=== PATIENT | female | born 1965 | race Caucasian/White ===

== ENCOUNTER 2021-07-15 07:45 | Outpatient (CLI) | payer BC, SELFPAY ==
--- NOTE | 2021-07-15 08:00 | ECG_ITS ---
Measurements Intervals [place] Rate: 54 P: 37 [place]: 155 QRS: -39 QRSD: 88 T: -13 QT: 388 QTc: 368 Interpretive Statements SINUS BRADYCARDIA LEFT AXIS DEVIATION INCOMPLETE RIGHT BUNDLE BRANCH BLOCK LOW QRS VOLTAGE IN PRECORDIAL LEADS POOR R WAVE PROGRESSION, ANTERIOR LEADS BORDERLINE ST-T WAVE ABNORMALITY- ANTEROLAT/INF LEADS BASELINE ARTIFACT- I, II ,AVR BORDERLINE ECG Electronically Signed On 07-15-2021 8:07:25 FRONT OFFICE DIRECTOR by Theodore Shirley D.O.
== END 2021-07-15 07:46 | disposition home or self-care (01) ==
LOC: ANHSURGERY 07:53
PROVIDERS: PCP Family Medicine; Visit Provider Podiatrist Foot & Ankle Surgery
DX: Z01.810 Encounter for preprocedural cardiovascular examination (principal); I10 Essential (primary) hypertension
CPT/HCPCS: 93005

== ENCOUNTER 2021-07-18 02:21 | Day surgery (SDC) | payer BC, SELFPAY ==
[2021-07-11 14:47] VITALS: BMI 39.3
--- NOTE | 2021-07-11 15:01 | PC.NURSE ---
Addendum entered by Negra Roca RN 07/14/21 15:00: TAKE ATENOLOL WITH A SMALL SIP OF WATER THE MORNING OF SURGERY (DISREGARD NOTE ABOUT AMLODIPINE) Original Note: Report to the Outpatient Waiting Room, entrance under the green pavilion located off [facility], at time 9:00 on date 07/18/21. OR Time: 11:00. - You will be asked a series of questions to screen for COVID 19 for your protection. - A mask is required within the hospital. - No visitors are allowed at this time. Preoperative COVID Testing Requirements: No COVID Test needed if: (proof is required; if not received patient will have Rapid Test prior to entry) - Patient has received COVID Vaccine at least 14 days prior to procedure date or - Patient has positive COVID test result within last 90 days of surgery date. COVID Test needed if above criteria is not met Patients may have clear liquids (water, carbonated beverages, clear teas, apple juice) until 3 hours prior to surgery (8:00) with a maximum of 20 ounces. - No food from midnight until time of surgery Take the following medications with a SIP of water the morning of surgery: AMLODIPINE Medications to discontinue per physician: N/A Date to take last dose: N/A Please no make-up, nail pashto, hairspray, perfume, deodorant, or body powder the day of surgery. No jewelry (including any body piercings) or valuables the day of surgery, leave them at home. Please take a shower or bath the night before, or the morning of, surgery with an antibacterial soap. Wear comfortable, loose fitting clothing. - Jewelry must be removed prior to entering the operating room. Rings and piercings that are not removed may be cut off. - The hospital will not accept responsibility for valuables. - Please leave all valuables, including medications, at home the day of surgery. If you are going home after surgery, a licensed school bus driver/custodian must drive you home. - NO public transportation without another adult. - We recommend that an adult stay with you for 24 hours following discharge. - We also recommend that you do not drive, make important decision, drink alcoholic beverages, or take any drugs that were not prescribed by your health care provider for at least 24 hours after your discharge time. Follow any additional instructions given to you from your surgeon. Telephone instructions given to RITIKA FAY and asked if any additional questions and then verbalized understanding. Patient advised to call surgeon office or pre surgery nurse liaison [phone] if any additional questions.
--- NOTE | 2021-07-17 17:02 | WPDANESEPP ---
Anes - Eval Pre Procedure Procedure: Operation Date: 07/18/21 11:00 Proposed Procedures p Amandeep Shortening Second Metatarsal Osteotomy Right Foot, Primary Plantar Plate Repair Second Metatarsal Phalangeal Joint Right Foot, - Andres Wilson JR, MD s Hammer Toe Repair Second Digit Right Foot - Andres Wilson JR, MD Date/Time: 07/17/21 17:02 Pre Op Diagnosis: metarsalgia sub 2nd MPJ right foot Patient Data Age: 55 Gender: F Height: 1.57 m Weight: 97.52 kg Allergies Allergy/AdvReac Type Severity Reaction Status Date / Time Sulfa (Sulfonamide Allergy Hives Verified 07/11/21 14:44 Antibiotics) Home Medications Medication Instructions Recorded Confirmed Type atenolol 50 mg PO DAILY 07/11/21 07/11/21 History telmisartan 20 mg PO DAILY 07/11/21 07/11/21 History Patient hx anesthesia problems: none Family hx anesthesia problems: none Results Review: All pre-operative results and documents have been reviewed as part of the pre-operative evaluation. [facility] Past Medical History Medical History (Updated 07/17/21 @ 17:04 by Ernie Lou CRNA) Asthma Hypertension Migraines Morbid obesity Social History Social History Smoking status: Never smoker Alcohol intake: never Substance use: never Substance use type: does not use Spiritual care concerns: No Comments VR 54 SINUS BRADYCARDIA LEFT AXIS DEVIATION INCOMPLETE RIGHT BUNDLE BRANCH BLOCK LOW QRS VOLTAGE IN PRECORDIAL LEADS POOR R WAVE PROGRESSION, ANTERIOR LEADS BORDERLINE ST-T WAVE ABNORMALITY- ANTEROLAT/INF LEADS BASELINE ARTIFACT- I, II ,AVR BORDERLINE ECG Exam Day of Procedure 07/17/21 17:02
[2021-07-18] VITALS (7 sets, daily range): BP systolic 109–140; BP diastolic 67–83; PULSE 47–83; RESP 12–16; TEMP 36.8; O2SAT 98–100
--- NOTE | ~2021-07-18 | XR_ITS ---
EXAMINATION: XR surgery orthopedic DATE: 07/18/2021 12:34 INDICATION: Right second metatarsal shortening TECHNIQUE: A single fluoroscopic image of the right forefoot was obtained during procedure performed by Dr. Wilson. Radiologist was not present for the imaging or procedure. The amount of fluoroscopy time used during this procedure was 0.1 minutes. COMPARISON: None. FINDINGS: Shortening osteotomy at the neck of the second metatarsal fixed with a pair of screws. Second proxima l interphalangeal joint arthrodesis with fixation device. Subtle thin linear lucency projecting acros s the base of the first proximal phalanx suggesting severe osteoarthritis with a suboptimally profile d severely narrowed joint space. Could not exclude an arthrodesis across the first metatarsophalangea l joint. Correlate with surgical history with a lateral radiograph for more definitive determination as clinically indicated. No fracture. Expected soft tissue swelling about the second toe. Remaining p rofiled joint spaces are unremarkable. IMPRESSION: 1. Fluoroscopy utilized during shortening osteotomy at the second metatarsal with screw fixation. See procedure note for further detail. Reviewed, dictated and finalized at location A. LER IMPRESSION: 1. Fluoroscopy utilized during shortening osteotomy at the second metatarsal wi th screw fixation. See procedure note for further detail.
--- NOTE | 2021-07-18 07:12 | WPDHPUPDATE1 ---
History and Physical Update Update Date/Time: 07/18/21 07:12 History and Physical has been reviewed, including an updated exam of the patient. There are NO changes in the patient's condition. Risks, benefits, and alternatives have been discussed and questions answered. Patient agrees to proceed with procedure.
[2021-07-18] MEDS: LACTATED RINGERS 1,000 ML 30 ML IV CONT ×2 (09:53→12:47)
--- NOTE | 2021-07-18 10:12 | WPDANESEFPP ---
Anes - Eval Final PreProcedure Day of Procedure 07/18/21 10:12 Patient weight: obese Heart: regular rate and rhythm Lungs: clear to auscultation Airway: Mallampati scale class II Neurological: alert and oriented Last oral intake: >/= 8 hours ASA classification: III Emergent: no Anesthetic plan: proceed Anesthesia type and monitoring: general LMA and standard monitoring Results Review: All pre-operative results and documents have been reviewed as part of the pre-operative evaluation. Informed Consent: The patient's anesthetic plan and its attendant risks and benefits were discussed with the patient/family/POA. Questions were solicited and answers provided to the satisfaction of the patient/family/POA.
[2021-07-18] MEDS: ceFAZolin 2 GM/D5W 50 ML 2 GM/50 ML BAG IVPB (11:25)
[2021-07-18] MEDS: LIDOCAINE HCL 2% PF INJ 5 ML VIAL INFILTRATE (11:52)
[2021-07-18] MEDS: fentaNYL CITRATE INJ (*CRX) 100 MCG/2 ML VIAL 25 MCG IV PUSH ×4 (12:58→13:18)
--- NOTE | 2021-07-18 13:10 | W.PM.PROC2 ---
Procedure Note - Detailed Date of Procedure 07/18/21 Pre-op Diagnosis 1. Metatarsalgia sub 2nd metatarsal phalangeal joint right foot 2. Dislocated 2nd digit at the 2nd metatarsal phalangeal joint right foot 3. Hammertoe deformity 2nd digit right foot Post-op Diagnosis same Procedure Performed 1. Primary plantar plate repair 2nd metatarsal phalangeal joint right foot 2. Amandeep shortening 2nd metatarsal osteotomy right foot 3. Hammertoe repair 2nd metatarsal phalangeal joint right foot Surgeon Andres Wilson JR, [facility] Anesthesia general and local Indications Pain to the right forefoot with a dislocated 2nd digit Description of Procedure PROCEDURE IN DETAIL: Under mild sedation, the patient was brought into the operating room, placed on the operating table in supine position. A pneumatic ankle tourniquet was placed about the patient's ipsilateral ankle. Following general LMA, a local anesthetic block was obtained about the foot and ankle utilizing 10 cc of 2% Lidocaine plain and 0.5% Marcaine plain. The foot was then scrubbed, prepped, and draped in the usual aseptic manner. An Esmarch bandage was then used to exsanguinate the patient's foot and the pneumatic ankle tourniquet was then inflated. Surgery began in the following manner: Attention was directed to the second digit of the foot where a 5 cm incision was made from starting just distal to the interphalangeal joint and extending to the 2nd metatarsal shaft. A transverse tenotomy was created dorsal to the proximal interphalangeal joint, next the head of the proximal phalanx was resected with an oscillating saw blade, the middle phalanx cartilage was resected with a curette. The dissection was continued to the dorsal aspect of the 2nd metatarsal head of the foot through the same incision just medial to the extensor tendon to the 2nd digit. The incision was continued deep down through the subcutaneous tissues using sharp and blunt dissection. All bleeders were cauterized as necessary. A full-length periosteal incision was made overlying the 2nd metatarsal head distally, a 15 blade was used to expose the entire 2nd metatarsal head and a Mc Glammary was used to free the plantar plate from the plantar surface of the 2nd metatarsal. Next, a sagittal bone saw was used to make an osteotomy starting along the dorsal aspect of the articular surface to the head of the 2nd metatarsal in a parallel fashion to the shaft of the 2nd metatarsal. After this osteotomy was completed, the head of the 2nd metatarsal was pushed proximally and held in place with a k wire. The lateral collateral ligaments were freed from the medial and lateral aspect of the head of the metatarsal. The plantar plate was visualized after a joint distractor was used to expose the 2nd metatarsal phalangeal joint plantarly. Utilizing the Arthrex Scorpion system the fibertape suture was used to make a horizontal mattress stitch to grasp the plantar plate and advance it during the repair. Next, two drill holes were made with standard technique for the Arthrex scorpion system starting dorsally and medial and lateral of the base of the proximal phalanx to the plantar aspect, a lasso system was used to pull the fibertape suture dorsally in a crossed fashion. Next, I implanted the Arthrex cannulated Dynanite size 14 mm hammertoe implant in a cannulated fashion using standard technique. Fluoroscopy was used to make sure that the digit and implant was appropriately positioned. Next, two Arthrex snapoff screws were driven from dorsal to plantar to fixate the Amandeep osteotomy site under fluoroscopy with excellent compression noted, a 13mm and a 11mm screw length was used. The second metatarsal length has improved significantly in regards to the parabola with the adjacent metatarsals. The 2nd digit was properly reduced no longer dislocated. The second digit was plantarflexed and a surgeon handknot was used to tie the plantar plate as it was adva
[2021-07-18] MEDS: oxyCODONE HCL (*CRX) 5 MG TAB IR PO (13:58)
--- NOTE | 2021-07-18 14:54 | SUR.PHASEII ---
pt meets discharge status pt is waiting on a ride
== END 2021-07-18 15:00 | disposition home or self-care (01) ==
PROVIDERS: PCP Family Medicine; Visit Provider Podiatrist Foot & Ankle Surgery
PROC: (CPT 28750; principal; 2021-07-18 11:00)
PROC: (CPT 28308; 2021-07-18 11:00)
DX: M77.41 Metatarsalgia, right foot (principal); S93.124A Dislocation of metatarsophalangeal joint of right lesser toe(s), initial encounter; M20.41 Other hammer toe(s) (acquired), right foot; M25.571 Pain in right ankle and joints of right foot; R00.1 Bradycardia, unspecified; I45.10 Unspecified right bundle-branch block
CPT/HCPCS: 28308; 28285; 93005; A9270; C1713; J0690; J1100; J1170; J2250; J2370; J2405; J2704; J3010; J7120